=== PATIENT | female | born 1990 | race Caucasian/White ===

== ENCOUNTER 2018-12-19 08:29 | Emergency (ER) | payer MEDICAID ==
[~2018-12-19] VITALS: Ht 162.6 cm; Wt 100.0 kg
[2018-12-19 08:41] VITALS: BP 116/64; PULSE 83; RESP 18; Ht 162.6 cm; Wt 100.0 kg
== END 2018-12-19 11:31 | disposition home or self-care (01) ==
LOC: FTE 08:29
DX: O26.892 Other specified pregnancy related conditions, second trimester (principal); R51 Headache; R07.9 Chest pain, unspecified; Z3A.16 16 weeks gestation of pregnancy
CPT/HCPCS: 36415; 76805; 80053; 81001; 84702; 85025; 86900; 86901; Z7502; 81003

== ENCOUNTER 2019-02-14 17:14 | Outpatient (CLI) | payer MEDICAID ==
[~2019-02-14] VITALS: Ht 162.6 cm; Wt 91.3 kg
[2019-02-14 16:45] VITALS: BP 114/71; PULSE 91; RESP 20; Ht 162.6 cm; Wt 91.3 kg
[~2019-02-14 17:14] MED LIST: ACET-141 PO; GUAI-637 PO
== END 2019-02-14 17:35 | disposition home or self-care (01) ==
LOC: OBT 17:14 → L-D 17:15 → OBT 17:35
PROVIDERS: ATTEND Obstetrics & Gynecology
DX: O62.9 Abnormality of forces of labor, unspecified (principal); Z3A.24 24 weeks gestation of pregnancy
CPT/HCPCS: G0463